=== PATIENT | female | born 1995 | race Caucasian/White ===

== ENCOUNTER 2018-10-01 15:40 | Emergency (ER) | payer OTHER ==
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
[2018-10-01] MEDS ORDERED: Ondansetron ODT TAB* 4 MG PO ONE (16:34)
[2018-10-01] MEDS ORDERED: Morphine VIAL* 4 MG/ML VIAL (1 ml vial) IV ONE (16:35)
[2018-10-01 16:56] LABS: ABS Basophils 0 10^3/ul (0-0.2); ABS Eosinophils 0.1 10^3/ul (0-0.6); ABS Monocytes 0.6 10^3/ul (0-0.8); ABS Neutrophils 9.1 10^3/ul (1.5-7.7); ABS Nucleated RBC 0 10^3/ul; Eosinophil % 1.4 %; Hematocrit 34 % (35-47); Hemoglobin 11.3 g/dl (12.0-16.0); Lymphocyte % 9.5 %; Mean Corpuscular HGB Conc 33 g/dl (31-36); Mean Corpuscular Hemoglobin 31 pg (27-31); Mean Corpuscular Volume 93 fL (80-97); Mean Platelet Volume 8.4 fL (7.4-10.4); Nucleated Red Blood Cells % 0; Platelet Count 252 10^3/ul (150-450); Red Blood Count 3.67 10^6/ul (4.00-5.40); Red Cell Distribution Width 14 % (10.5-15)
[2018-10-01 17:11] LABS: Albumin 4.2 g/dL (3.2-5.2); Albumin/Globulin Ratio 2.1 (1-3); BUN/Creatinine Ratio 7.7 (8-20); Potassium 3.9 mmol/L (3.5-5.0); Total Protein 6.2 g/dL (6.4-8.9)
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
[2018-10-01] MEDS ORDERED: Iodixanol* (CONTRAST) 320 MG/ML 100 ML SDV IV ONE (19:52)
[2018-10-01 23:35] VITALS: BP 129/74
== END 2018-10-01 23:20 | disposition home or self-care (01) ==
LOC: ED 15:40
DX: O9A.211 Injury, poisoning and certain other consequences of external causes complicating pregnancy, first trimester (principal); S39.91XA Unspecified injury of abdomen, initial encounter; S29.9XXA Unspecified injury of thorax, initial encounter; R07.2 Precordial pain; D25.1 Intramural leiomyoma of uterus; Z3A.10 10 weeks gestation of pregnancy; V43.52XA Car driver injured in collision with other type car in traffic accident, initial encounter; Y92.410 Unspecified street and highway as the place of occurrence of the external cause; Z88.6 Allergy status to analgesic agent; Z91.010 Allergy to peanuts; Z91.048 Other nonmedicinal substance allergy status; F17.200 Nicotine dependence, unspecified, uncomplicated
CPT/HCPCS: 36415; 70450; 71046; 71260; 72125; 74160; 76817; 80053; 82375; 82600; 83605; 84702; 85025; 93005; 96374; 99284; A9270-GY; J2270; Q9967

== ENCOUNTER 2019-05-31 10:17 | Emergency (ER) | payer OTHER, MEDICAID ==
[2019-05-31 10:35] VITALS: BP 95/61
[2019-05-31] MEDS ORDERED: Penicillin VK TAB* 250 MG PO ONE (10:52)
--- NOTE | 2019-05-31 10:58 | UC ---
Dental HPI - HPI Summary HPI Summary: 23 yo female with right lower dental pain x 5 days worsening now with right jaw swelling she is breast feeding no f/c no DM no heart murmur - History of Current Complaint Chief Complaint: UCDentalProblem Stated Complaint: DENTAL PAIN Time Seen by Provider: 05/31/19 10:46 Hx Obtained From: Patient Hx Last Menstrual Period: post 1 week Onset/Duration: Gradual Onset, Lasting Days Severity: Moderate Pain Intensity: 4 Pain Scale Used: 0-10 Numeric Aggravating Factor(s): Chewing Alleviating Factor(s): OTC Meds Related History: Previous Dental Care on Same Tooth, Swelling Dental: 1 - abscess suspected here due to gum swelling, carious tooth - Allergies/Home Medications Allergies/Adverse Reactions: Allergies Allergy/AdvReac Type Severity Reaction Status Date / Time Adhesive Tape Allergy Severe Peeling Verified 05/31/19 10:35 Skin Home Medications: Home Medications Acetaminophen [Acetaminophen Extra Strength] 1,000 mg PO 05/31/19 [History] PMH/Surg Hx/FS Hx/Imm Hx Previously Healthy: Yes - Surgical History Surgical History: None - Family History Known Family History: Positive: Hypertension Negative: Cardiac Disease - Social History Alcohol Use: None Substance Use Type: Heroin Substance Use Comment - Amount & Last Used: subutex Smoking Status (MU): Light Every Day Tobacco Smoker Type: Cigarettes Have You Smoked in the Last Year: Yes Household Exposure Type: Cigarettes - Immunization History Most Recent Influenza Vaccination: unknown Most Recent Pneumonia Vaccination: none Review of Systems All Other Systems Reviewed And Are Negative: Yes Constitutional: Positive: Negative Skin: Positive: Negative Eyes: Positive: Negative ENT: Positive: Dental Pain Respiratory: Positive: Negative Cardiovascular: Positive: Negative Gastrointestinal: Positive: Negative Genitourinary: Positive: Negative Motor: Positive: Negative Neurovascular: Positive: Negative Musculoskeletal: Positive: Negative Neurological: Positive: Negative Psychological: Positive: Negative Physical Exam Triage Information Reviewed: Yes Appearance: Well-Appearing, No Pain Distress, Well-Nourished Vital Signs: Initial Vital Signs Temp 98.6 F 05/31/19 10:31 Pulse 82 05/31/19 10:31 Resp 18 05/31/19 10:31 BP 95/61 05/31/19 10:31 Pulse Ox 97 05/31/19 10:31 Vital Signs Reviewed: Yes Eyes: Positive: Conjunctiva Clear ENT: Positive: Hearing grossly normal, TMs normal, Dental tenderness, Uvula midline. Negative: Pharyngeal erythema, Nasal congestion, Nasal drainage, Trismus, Muffled voice, Hoarse voice Dental: Positive: Other: - see image Neck: Positive: Enlarged Nodes @ - right submandibular, right cervical Respiratory: Positive: Lungs clear, Normal breath sounds, No respiratory distress Cardiovascular: Positive: RRR, No Murmur Musculoskeletal: Positive: ROM Intact, No Edema Neurological: Positive: Alert Psychological Exam: Normal Skin Exam: Normal Dental Complaint Course/Dx - Differential Dx/Diagnosis Provider Diagnosis: Dental abscess Discharge ED - Sign-Out/Discharge Documenting (check all that apply): Patient Departure All imaging exams completed and their final reports reviewed: No Studies - Discharge Plan Condition: Stable Disposition: HOME Prescriptions: Penicillin VK 500 MG TAB(NF) [Penicillin VK 500 mg Tab] 500 mg PO QID #28 tab Patient Education Materials: Dental Abscess (ED) Referrals: Mike ROWAN,Amr [Primary Care Provider] - Additional Instructions: tylenol warm compresses see dentist tomorrow as planned - Billing Disposition and Condition Condition: STABLE Disposition: Home
== END 2019-05-31 11:04 | disposition home or self-care (01) ==
LOC: UCEAST 10:17
DX: K04.7 Periapical abscess without sinus (principal); F17.210 Nicotine dependence, cigarettes, uncomplicated
CPT/HCPCS: 99212; A9270-GY; G0463

== ENCOUNTER 2022-03-07 08:18 | Inpatient (IN) ==
[2022-03-07] MEDS ORDERED: Lactated Ringers 1000 ml BAG 1,000 ML IV ONE (08:38)
[2022-03-07] MEDS ORDERED: Metoclopramide 5 MG/ML VIAL (10 mg) IV ONE (08:39)
[2022-03-07 09:07] LABS: ABS Lymphocytes 1.5 10^3/ul (1.0-4.8); ABS Monocytes 0.6 10^3/ul (0-0.8); Eosinophil % 0.4 %; Hematocrit 14 % (35-47); Hemoglobin 4.4 g/dL (12.0-16.0); Lymphocyte % 16.8 %; Mean Corpuscular HGB Conc 31 g/dL (31-36); Mean Corpuscular Hemoglobin 27 pg (27-31); Mean Corpuscular Volume 88 fL (80-97); Mean Platelet Volume 6.2 fL (7.4-10.4); Platelet Count 881 10^3/uL (150-450); Red Blood Count 1.61 10^6 /uL (3.70-4.87); Red Cell Distribution Width 18 % (10-15); White Blood Count 9.2 10^3/uL (3.5-10.8)
[2022-03-07 09:36] LABS: ALT 8 U/L (7-52); AST 8 U/L (13-39); Albumin 3.3 g/dL (3.2-5.2); Albumin/Globulin Ratio 1.3 (1-3); Alkaline Phosphatase 61 U/L (35-149); Anion Gap 8 mmol/L (2-11); Blood Urea Nitrogen 9 mg/dL (6-24); CO2 Carbon Dioxide 32 mmol/L (22-32); Calcium 8.6 mg/dL (8.6-10.3); Chloride 102 mmol/L (101-111); Globulin 2.6 g/dL (2-4); Glucose 118 mg/dL (70-100); Potassium 3.7 mmol/L (3.5-5.0); Sodium 142 mmol/L (135-145); Total Protein 5.9 g/dL (6.4-8.9); eGFR CKD-EPI 132.4 (>60)
[2022-03-07 09:39] LABS: HCG Pregnancy < 0.60 mIU/mL
[2022-03-07 11:47] LABS: INR 1.36 (0.86-1.15)
[2022-03-07] MEDS ORDERED: Ondansetron 4 mg VIAL 2 MG/ML 2 ml VIAL IV PRN (12:18)
[2022-03-07] MEDS ORDERED: Metoclopramide 5 MG/ML VIAL (10 mg) IV SLOW PU PRN (12:23)
[2022-03-07 13:11] LABS: Fibrinogen 520.8 mg/dL (110.8-404.3)
[2022-03-07 16:20] VITALS: BP 94/54
== END 2022-03-07 17:20 | disposition left against medical advice (07) | DRG 663 ==
LOC: ED 08:18 → EDHOLD 12:18 → ICU 14:23
PROVIDERS: ADMIT Internal Medicine; ATTEND Internal Medicine